=== PATIENT | male | born 1955 | race African-American/Black ===

== ENCOUNTER 2018-02-05 16:40 | Emergency (ER) | payer MEDICARE, MEDICAID ==
[~2018-02-05] VITALS: Ht 175.3 cm; Wt 75.0 kg
[~2018-02-05 16:40] MED LIST: ALBUTEROL; GABAPENTIN; MOTRIN; TRAMADOL
[2018-02-05 21:15] VITALS: BP 119/68
== END 2018-02-05 21:35 | disposition home or self-care (01) ==
LOC: ER 16:56
DX: Z43.3 Encounter for attention to colostomy (principal); C18.9 Malignant neoplasm of colon, unspecified; Z85.038 Personal history of other malignant neoplasm of large intestine; J45.909 Unspecified asthma, uncomplicated
CPT/HCPCS: 99284

== ENCOUNTER 2018-08-26 13:38 | Emergency (ER) | payer MEDICARE, MEDICAID ==
[~2018-08-26] VITALS: Ht 195.6 cm; Wt 70.0 kg
[~2018-08-26 13:38] MED LIST changes: -MOTRIN
[2018-08-26] MEDS ORDERED: MORPHINE SULFATE 4 MG/ML CPJ (NOT FOR IM USE) IV STA (15:18)
[2018-08-26] MEDS ORDERED: ONDANSETRON HCL 4MG/2ML INJ IV STA (15:18)
[2018-08-26 16:48] LABS: HEMATOCRIT. 23.4 % (42.0-52.0); HEMOGLOBIN. 7.5 g/dL (14.0-18.0); MEAN CORPUSCULAR HEMOGLOBIN 22.2 pg (28.0-32.0); MEAN CORPUSCULAR VOLUME 68.6 fL (80.0-94.0); MEAN PLATELET VOLUME 8.3 fl (7.4-10.4); PLATELET 480 x1000/uL (130-400); RED BLOOD CELL COUNT 3.41 mill/uL (4.7-6.1); RED CELL DISTRIBUTION WIDTH 16.9 % (11.6-14.6)
[2018-08-26 16:52] LABS: INR 1.2; PROTHROMBIN TIME 12.2 sec (9.1-11.1)
[2018-08-26 16:53] LABS: CHLORIDE 99 mEq/L (98-107)
[2018-08-26 17:40] LABS: PLATELET ESTIMATE INCREASED
[2018-08-26 19:10] VITALS: BP 122/72
== END 2018-08-26 19:24 | disposition home or self-care (01) ==
LOC: ER 13:38
DX: K94.09 Other complications of colostomy (principal); M54.5 Low back pain; R10.9 Unspecified abdominal pain; Z93.3 Colostomy status; Z85.038 Personal history of other malignant neoplasm of large intestine; Z98.890 Other specified postprocedural states
CPT/HCPCS: 36415; 72100; 80053; 83690; 85025; 85610; 96374; 96375; 99285; J2270; J2405

== ENCOUNTER 2018-09-03 13:52 | Inpatient (IN) | payer MEDICARE, MEDICAID ==
[~2018-09-03] VITALS: Ht 196.8 cm; Wt 70.8 kg
[2018-09-03 16:09] LABS: BASOPHILS % 0.4 % (0.0-2.0); EOSINOPHILS % 0.3 % (0.0-5.0); HEMATOCRIT. 26.5 % (42.0-52.0); HEMOGLOBIN. 8.4 g/dL (14.0-18.0); LYMPHOCYTES % 42.8 % (20.0-50.0); MEAN CORPUSCULAR HEMOGLOBIN 21.1 pg (28.0-32.0); MEAN CORPUSCULAR VOLUME 66.6 fL (80.0-94.0); MEAN PLATELET VOLUME 7.3 fl (7.4-10.4); MONOCYTES % 6.2 % (2.0-8.0); NEUTROPHILS % 50.3 % (40.0-76.0); PLATELET 820 x1000/uL (130-400); RED BLOOD CELL COUNT 3.97 mill/uL (4.7-6.1); RED CELL DISTRIBUTION WIDTH 17.3 % (11.6-14.6)
[2018-09-03 16:24] LABS: INR 1.3; PARTIAL THROMBOPLASTIN TIME 32.9 sec (23.4-31.0); PROTHROMBIN TIME 13.3 sec (9.1-11.1)
[2018-09-03 16:25] LABS: PLATELET ESTIMATE MARKEDLY INCREASED
[2018-09-03] MEDS ORDERED: ONDANSETRON HCL 4MG/2ML INJ IV STA (16:32)
[2018-09-03] MEDS ORDERED: SODIUM CHLORIDE 0.9% 1,000 ML IV ONE (16:32)
[2018-09-03] MEDS ORDERED: FENTANYL CITRATE/PF 50MCG/ML 2ML VIAL IV ONE (16:45)
[2018-09-03 17:06] LABS: CHLORIDE 99 mEq/L (98-107)
[2018-09-03] MEDS ORDERED: DOCUSATE SODIUM 100MG CAPSULE PO PRN (17:15)
[2018-09-03] MEDS ORDERED: NITROGLYCERIN 0.4MG TABLET SL SL PRN (17:15)
[2018-09-03] MEDS ORDERED: ONDANSETRON HCL 4MG/2ML INJ IV PRN (17:15)
[2018-09-03] MEDS ORDERED: IPRATROPIUM/ALBUTEROL 0.5-3(2.5)MG/3ML NEB INH PRN (17:15)
[2018-09-03] MEDS ORDERED: LORAZEPAM 0.5MG TABLET PO PRN (17:15)
[2018-09-03] MEDS ORDERED: TRAMADOL 50MG TABLET PO PRN (17:15)
[2018-09-03] MEDS ORDERED: ZOLPIDEM TARTRATE 5MG TABLET PO PRN (17:15)
[2018-09-03] MEDS ORDERED: MAGNESIUM/ALUMINUM HYDROXIDE/SIMETHICONE 30ML UDC PO PRN (17:15)
[2018-09-03] MEDS ORDERED: MORPHINE SULFATE 4 MG/ML CPJ (NOT FOR IM USE) IV PRN (17:15)
[2018-09-03] MEDS ORDERED: CLONIDINE 0.1MG TABLET PO PRN (17:15)
[2018-09-03] MEDS ORDERED: KETOROLAC 15MG/ML VIAL IV PRN (17:15)
[2018-09-03 17:59] LABS: TOTAL IRON BINDING CAPACITY 273 ug/dL (250-450)
[2018-09-03 21:29] VITALS: BP 109/68
[2018-09-03 22:08] LABS: *BARBITURATES SCREEN URINE NEGATIVE (NEGATIVE); *BENZODIAZEPINES SCREEN URINE NEGATIVE (NEGATIVE); *COCAINE SCREEN URINE NEGATIVE (NEGATIVE); METHADONE URINE SCREEN NEGATIVE (NEGATIVE); OPIATES URINE SCREEN NEGATIVE (NEGATIVE); PHENCYCLIDINE URINE SCREEN NEGATIVE (NEGATIVE)
[2018-09-03 22:09] LABS: *AMPHETAMINES SCREEN URINE NEGATIVE (NEGATIVE); CANNABINOID URINE SCREEN PRESUMTIVE POSITIVE (NEGATIVE)
[2018-09-03] MEDS ORDERED: INFLUENZA VIRUS VACCINE(AFLURIA) 0.5ML SYR IM ONE (22:45)
[2018-09-03] MEDS: HYDROCORTISONE 1% RECTAL CREAM 30GM PR SCH (23:09)
[2018-09-04 00:45] LABS: HEMATOCRIT 23.8 % (42.0-52.0); HEMOGLOBIN 7.8 g/dL (14.0-18.0)
[2018-09-04 08:00] VITALS: BP 103/67
[2018-09-04] MEDS ORDERED: INFLUENZA VIRUS VACCINE(AFLURIA) 0.5ML SYR IM ONE ×2 (09:00→12:00)
[2018-09-04] MEDS: HYDROCORTISONE 1% RECTAL CREAM 30GM PR SCH ×2 (09:00→21:39)
[2018-09-04] MEDS: FERROUS SULFATE 300MG/5ML UDC PO SCH ×3 (09:35→18:24)
[2018-09-04] MEDS: PANTOPRAZOLE SODIUM 40 MG/VIAL IV SCH (09:35)
[2018-09-04 12:00] VITALS: BP 106/63
[2018-09-04] MEDS ORDERED: IOHEXOL-300 100 ML BOTTLE ONE (13:47)
[2018-09-04 16:00] VITALS: BP 103/65
[2018-09-04] MEDS: ACETAMINOPHEN 325MG TABLET PO PRN (18:57)
[2018-09-04 20:00] VITALS: BP 99/57
[2018-09-05] VITALS (7 sets, daily range): BP systolic 85–119; BP diastolic 57–86
[2018-09-05] MEDS: ACETAMINOPHEN 325MG TABLET PO PRN (02:21)
[2018-09-05 07:47] LABS: HEMATOCRIT. 23.9 % (42.0-52.0); HEMOGLOBIN. 7.9 g/dL (14.0-18.0); MEAN CORPUSCULAR HEMOGLOBIN 21.9 pg (28.0-32.0); MEAN CORPUSCULAR VOLUME 66.6 fL (80.0-94.0); MEAN PLATELET VOLUME 7.5 fl (7.4-10.4); PLATELET 827 x1000/uL (130-400); RED BLOOD CELL COUNT 3.59 mill/uL (4.7-6.1); RED CELL DISTRIBUTION WIDTH 17.1 % (11.6-14.6)
[2018-09-05] MEDS: PANTOPRAZOLE SODIUM 40 MG/VIAL IV SCH (08:41)
[2018-09-05] MEDS: FERROUS SULFATE 300MG/5ML UDC PO SCH ×2 (08:41→12:28)
[2018-09-05] MEDS: HYDROCORTISONE 1% RECTAL CREAM 30GM PR SCH (08:46)
[2018-09-05 10:40] LABS: CHLORIDE 103 mEq/L (98-107)
[2018-09-05 17:58] LABS: PLATELET ESTIMATE MARKEDLY INCREASED
[2018-09-05 18:57] LABS: VITAMIN B12 SERUM 1574 pg/mL (211-911)
[2018-09-05 19:02] LABS: FOLIC ACID (FOLATE) SERUM > 20.00 ng/mL (>5.38)
[2018-09-11 04:12] LABS: OVA & PARASITE EXAM Final report (.)
== END 2018-09-05 16:18 | disposition home or self-care (01) | DRG 375 ==
LOC: ER 14:02 → EDBEDREQ 16:52 → EDBEDREQTM 16:52 → ENRESERV 19:57 → 6EST 21:28 → CANBEDREQ 09-05 01:26
PROVIDERS: ADMIT Internal Medicine; ATTEND Internal Medicine
DX: C18.9 Malignant neoplasm of colon, unspecified (principal); D62 Acute posthemorrhagic anemia; E87.1 Hypo-osmolality and hyponatremia; E44.0 Moderate protein-calorie malnutrition; C78.5 Secondary malignant neoplasm of large intestine and rectum; Z68.1 Body mass index [BMI] 19.9 or less, adult; K64.9 Unspecified hemorrhoids; F12.10 Cannabis abuse, uncomplicated; G89.29 Other chronic pain; M17.11 Unilateral primary osteoarthritis, right knee; M54.9 Dorsalgia, unspecified; D50.9 Iron deficiency anemia, unspecified; J44.9 Chronic obstructive pulmonary disease, unspecified; K43.9 Ventral hernia without obstruction or gangrene; Z93.3 Colostomy status
CPT/HCPCS: 36415; 71045; 74177; 80048; 80305; 82607; 82705; 82746; 83036; 83540; 83550; 85014; 85018; 87015; 87045; 87177; 87209; 87427; 87449; 87493; 89055; 90686; 93970; 96374; 96375; 99285; C9113; J2270; J2405; J3010; J7030; Q9967

== ENCOUNTER 2019-02-05 00:16 | Inpatient (IN) | payer MEDICARE, MEDICAID ==
[~2019-02-05] VITALS: Ht 195.6 cm; Wt 57.6 kg
[2019-02-05] VITALS (9 sets, daily range): BP systolic 97–110; BP diastolic 64–72
[2019-02-05] MEDS ORDERED: SODIUM CHLORIDE 0.9% 1,000 ML IV ONE (01:17)
[2019-02-05] MEDS ORDERED: ONDANSETRON HCL 4MG/2ML INJ IV STA (01:17)
[2019-02-05] MEDS ORDERED: MORPHINE SULFATE 4 MG/ML CPJ (NOT FOR IM USE) IV STA (01:17)
[2019-02-05] MEDS ORDERED: LEVOFLOXACIN 750MG PREMIX 150 ML IV ONE (01:30)
[2019-02-05] MEDS ORDERED: CLINDAMYCIN 600 MG in DEXTROSE 5% WATER 50 ML IV ONE (01:30)
[2019-02-05] MEDS ORDERED: METRONIDAZOLE 500 MG PREMIX 100 ML IV ONE (01:30)
[2019-02-05 01:56] LABS: MEAN CORPUSCULAR HEMOGLOBIN 25.6 pg (28.0-32.0); MEAN CORPUSCULAR VOLUME 79.5 fL (80.0-94.0); MEAN PLATELET VOLUME 8.2 fl (7.4-10.4); PLATELET 391 x1000/uL (130-400); RED BLOOD CELL COUNT 2.55 mill/uL (4.7-6.1)
[2019-02-05 01:58] LABS: HEMATOCRIT. 20.3 % (42.0-52.0); HEMOGLOBIN. 6.5 g/dL (14.0-18.0)
[2019-02-05 02:04] LABS: CHLORIDE 104 mEq/L (98-107); INR 1.3; PROTHROMBIN TIME 13.3 sec (9.6-11.0)
[2019-02-05 02:34] LABS: NUCLEATED RED BLOOD CELLS 1 /100 WBC
[2019-02-05 02:35] LABS: PLATELET ESTIMATE NORMAL
[2019-02-05] MEDS ORDERED: CLINDAMYCIN 600MG PREMIX 50 ML IV SCH (03:00)
[2019-02-05] MEDS ORDERED: IOHEXOL-300 100 ML BOTTLE ONE (03:13)
[2019-02-05] MEDS ORDERED: CLONIDINE 0.1MG TABLET PO PRN (08:45)
[2019-02-05] MEDS ORDERED: MAGNESIUM/ALUMINUM HYDROXIDE/SIMETHICONE 30ML UDC PO PRN (08:45)
[2019-02-05] MEDS ORDERED: IPRATROPIUM/ALBUTEROL 0.5-3(2.5)MG/3ML NEB INH PRN (08:45)
[2019-02-05] MEDS ORDERED: DIPHENHYDRAMINE 50MG/ML VIAL IV PRN (08:45)
[2019-02-05] MEDS ORDERED: ONDANSETRON HCL 4MG/2ML INJ IV PRN (08:45)
[2019-02-05] MEDS ORDERED: DOCUSATE SODIUM 100MG CAPSULE PO PRN (08:45)
[2019-02-05] MEDS ORDERED: ACETAMINOPHEN 325MG TABLET PO PRN (08:45)
[2019-02-05] MEDS ORDERED: GUAIFENESIN 200MG/10ML SUGAR FREE UDC PO PRN (08:45)
[2019-02-05 09:07] LABS: PHOSPHORUS 3.1 mg/dL (2.5-4.9)
[2019-02-05] MEDS: CEFEPIME 1,000 MG in DEXTROSE 5% WATER 50 ML IV SCH (13:30)
[2019-02-05] MEDS: METRONIDAZOLE 500 MG PREMIX 100 ML IV SCH ×2 (14:00→22:58)
[2019-02-05] MEDS ORDERED: VANCOMYCIN 1,750 MG in DEXT 5% WATER 250 ML IV NR ×2 (15:00→21:00)
[2019-02-05] MEDS ORDERED: VANCOMYCIN 1250MG in DEXTROSE 5% WATER 250ML IV SCH (17:00)
[2019-02-05 17:55] LABS: CREATINE KINASE MB FRACTION 3.4 ng/mL (0.5-3.6)
[2019-02-05 19:38] LABS: MEAN CORPUSCULAR HEMOGLOBIN 25.1 pg (28.0-32.0); MEAN CORPUSCULAR VOLUME 81.7 fL (80.0-94.0); MEAN PLATELET VOLUME 8.6 fl (7.4-10.4); PLATELET 382 x1000/uL (130-400); RED BLOOD CELL COUNT 2.33 mill/uL (4.7-6.1); RED CELL DISTRIBUTION WIDTH 19.4 % (11.6-14.6)
[2019-02-05 19:41] LABS: HEMATOCRIT. 19.1 % (42.0-52.0); HEMOGLOBIN. 5.9 g/dL (14.0-18.0)
[2019-02-05] MEDS: MORPHINE SULFATE 4 MG/ML CPJ (NOT FOR IM USE) IV PRN (20:10)
[2019-02-05 20:38] LABS: PLATELET ESTIMATE NORMAL
[2019-02-05 22:22] LABS: TOTAL IRON BINDING CAPACITY 139 ug/dL (250-450)
[2019-02-06] VITALS (12 sets, daily range): BP systolic 106–124; BP diastolic 69–82
[2019-02-06] MEDS: MORPHINE SULFATE 4 MG/ML CPJ (NOT FOR IM USE) IV PRN ×5 (00:49→22:35)
[2019-02-06] MEDS: CEFEPIME 1,000 MG in DEXTROSE 5% WATER 50 ML IV SCH ×2 (01:27→12:49)
[2019-02-06 02:52] LABS: CREATINE KINASE MB FRACTION 3.5 ng/mL (0.5-3.6)
[2019-02-06] MEDS ORDERED: VANCOMYCIN 1250MG in DEXTROSE 5% WATER 250ML IV SCH (06:00)
[2019-02-06] MEDS: METRONIDAZOLE 500 MG PREMIX 100 ML IV SCH ×3 (07:09→21:29)
[2019-02-06 09:10] LABS: HEMATOCRIT. 31.1 % (42.0-52.0); HEMOGLOBIN. 10.3 g/dL (14.0-18.0); MEAN CORPUSCULAR HEMOGLOBIN 27.2 pg (28.0-32.0); MEAN CORPUSCULAR VOLUME 82.3 fL (80.0-94.0); MEAN PLATELET VOLUME 8.3 fl (7.4-10.4); PLATELET 376 x1000/uL (130-400); RED BLOOD CELL COUNT 3.78 mill/uL (4.7-6.1); RED CELL DISTRIBUTION WIDTH 16.9 % (11.6-14.6)
[2019-02-06 09:12] LABS: CHLORIDE 106 mEq/L (98-107)
[2019-02-06 09:21] LABS: LDL CHOLESTEROL 97 mg/dL (5-100)
[2019-02-06 09:22] LABS: HDL CHOLESTEROL 55 mg/dL (40-59)
[2019-02-06] MEDS: VANCOMYCIN 1250MG in DEXTROSE 5% WATER 250ML IV SCH ×2 (09:23→20:38)
[2019-02-06] MEDS ORDERED: HYDROCODONE/ACETAMINOPHEN 5/325MG TABLET PO PRN (11:30)
[2019-02-06] MEDS: OMEPRAZOLE 20MG CAPSULE EXTENDED RELEASE PO SCH (12:48)
[2019-02-06 17:23] LABS: PLATELET ESTIMATE NORMAL
[2019-02-07] VITALS: BP 124/83
[2019-02-07] MEDS: CEFEPIME 1,000 MG in DEXTROSE 5% WATER 50 ML IV SCH ×2 (01:19→13:14)
[2019-02-07] MEDS: MORPHINE SULFATE 4 MG/ML CPJ (NOT FOR IM USE) IV PRN ×3 (02:43→19:11)
[2019-02-07 04:00] VITALS: BP 120/80
[2019-02-07] MEDS: METRONIDAZOLE 500 MG PREMIX 100 ML IV SCH ×3 (06:31→23:12)
[2019-02-07 06:39] LABS: CHLORIDE 105 mEq/L (98-107)
[2019-02-07] MEDS: OMEPRAZOLE 20MG CAPSULE EXTENDED RELEASE PO SCH (06:45)
[2019-02-07] MEDS: VANCOMYCIN 1250MG in DEXTROSE 5% WATER 250ML IV SCH (09:55)
[2019-02-07 12:00] VITALS: BP 94/64
[2019-02-07 16:00] VITALS: BP 102/77
[2019-02-07 16:52] LABS: HEMATOCRIT 29.1 % (42.0-52.0); HEMOGLOBIN 9.6 g/dL (14.0-18.0); MEAN CORPUSCULAR HEMOGLOBIN 27.8 pg (28.0-32.0); MEAN CORPUSCULAR VOLUME 83.9 fL (80.0-94.0); PLATELET 369 x1000/uL (130-400); RED BLOOD CELL COUNT 3.46 mill/uL (4.7-6.1); RED CELL DISTRIBUTION WIDTH 17.8 % (11.6-14.6)
[2019-02-07 20:00] VITALS: BP 106/73
[2019-02-07] MEDS: VANCOMYCIN 750 MG PREMIX 150 ML IV SCH (20:57)
[2019-02-08] VITALS (7 sets, daily range): BP systolic 95–118; BP diastolic 64–86
[2019-02-08] MEDS: CEFEPIME 1,000 MG in DEXTROSE 5% WATER 50 ML IV SCH ×2 (01:19→13:30)
[2019-02-08] MEDS: MORPHINE SULFATE 4 MG/ML CPJ (NOT FOR IM USE) IV PRN ×5 (04:44→23:20)
[2019-02-08 06:12] LABS: HEMATOCRIT. 29.3 % (42.0-52.0); HEMOGLOBIN. 9.7 g/dL (14.0-18.0); MEAN CORPUSCULAR HEMOGLOBIN 27.3 pg (28.0-32.0); MEAN CORPUSCULAR VOLUME 82.6 fL (80.0-94.0); MEAN PLATELET VOLUME 8.6 fl (7.4-10.4); PLATELET 388 x1000/uL (130-400); RED BLOOD CELL COUNT 3.54 mill/uL (4.7-6.1); RED CELL DISTRIBUTION WIDTH 17.8 % (11.6-14.6)
[2019-02-08] MEDS: METRONIDAZOLE 500 MG PREMIX 100 ML IV SCH ×3 (06:13→22:46)
[2019-02-08] MEDS: OMEPRAZOLE 20MG CAPSULE EXTENDED RELEASE PO SCH (06:21)
[2019-02-08 06:32] LABS: CHLORIDE 106 mEq/L (98-107)
[2019-02-08] MEDS: VANCOMYCIN 750 MG PREMIX 150 ML IV SCH ×2 (09:04→21:32)
[2019-02-08 10:34] LABS: NUCLEATED RED BLOOD CELLS 1 /100 WBC; PLATELET ESTIMATE NORMAL
[2019-02-09] MEDS: CEFEPIME 1,000 MG in DEXTROSE 5% WATER 50 ML IV SCH ×2 (01:06→14:02)
[2019-02-09 04:00] VITALS: BP 113/71
[2019-02-09] MEDS: MORPHINE SULFATE 4 MG/ML CPJ (NOT FOR IM USE) IV PRN ×2 (05:16→14:03)
[2019-02-09] MEDS: OMEPRAZOLE 20MG CAPSULE EXTENDED RELEASE PO SCH (06:23)
[2019-02-09] MEDS: METRONIDAZOLE 500 MG PREMIX 100 ML IV SCH ×3 (06:24→22:25)
[2019-02-09 06:57] LABS: HEMATOCRIT. 29.4 % (42.0-52.0); HEMOGLOBIN. 9.5 g/dL (14.0-18.0); MEAN CORPUSCULAR HEMOGLOBIN 26.6 pg (28.0-32.0); MEAN CORPUSCULAR VOLUME 82.6 fL (80.0-94.0); MEAN PLATELET VOLUME 8.5 fl (7.4-10.4); PLATELET 348 x1000/uL (130-400); RED BLOOD CELL COUNT 3.56 mill/uL (4.7-6.1); RED CELL DISTRIBUTION WIDTH 18.5 % (11.6-14.6)
[2019-02-09 07:23] LABS: CHLORIDE 106 mEq/L (98-107)
[2019-02-09 08:00] VITALS: BP 99/67
[2019-02-09] MEDS: VANCOMYCIN 750 MG PREMIX 150 ML IV SCH (08:43)
[2019-02-09 10:41] LABS: PLATELET ESTIMATE NORMAL
[2019-02-09 12:00] VITALS: BP 104/64
[2019-02-09 16:00] VITALS: BP 99/70
[2019-02-09 20:00] VITALS: BP 93/57
[2019-02-10] VITALS: BP 98/67
[2019-02-10] MEDS: CEFEPIME 1,000 MG in DEXTROSE 5% WATER 50 ML IV SCH ×2 (00:52→12:03)
[2019-02-10 04:00] VITALS: BP 92/61
[2019-02-10] MEDS ORDERED: VANCOMYCIN 1 G PREMIX 200 ML IV SCH (04:00)
[2019-02-10] MEDS: OMEPRAZOLE 20MG CAPSULE EXTENDED RELEASE PO SCH (06:37)
[2019-02-10] MEDS: METRONIDAZOLE 500 MG PREMIX 100 ML IV SCH ×2 (06:49→12:44)
[2019-02-10 08:00] VITALS: BP 104/74
[2019-02-10 12:00] VITALS: BP 92/64
[2019-02-10 12:19] VITALS: BP 104/74
== END 2019-02-10 14:40 | disposition home or self-care (01) | DRG 871 ==
LOC: ER 00:16 → 5WST 04:51 → EDBEDREQTM 04:58 → EDBEDREQ 04:58 → ENRESERV 07:51
PROVIDERS: ADMIT Internal Medicine; ATTEND Internal Medicine
PROC: 30233N1 Transfusion of Nonautologous Red Blood Cells into Peripheral Vein, Percutaneous Approach (ICD-10-PCS; principal; 2019-02-05)
DX: A41.9 Sepsis, unspecified organism (principal); E43 Unspecified severe protein-calorie malnutrition; C18.9 Malignant neoplasm of colon, unspecified; C78.7 Secondary malignant neoplasm of liver and intrahepatic bile duct; C78.00 Secondary malignant neoplasm of unspecified lung; C79.89 Secondary malignant neoplasm of other specified sites; E87.2 Acidosis; E87.1 Hypo-osmolality and hyponatremia; C78.6 Secondary malignant neoplasm of retroperitoneum and peritoneum; Z68.1 Body mass index [BMI] 19.9 or less, adult; B99.8 Other infectious disease; D50.9 Iron deficiency anemia, unspecified; J45.909 Unspecified asthma, uncomplicated; K64.9 Unspecified hemorrhoids; K42.9 Umbilical hernia without obstruction or gangrene; N32.89 Other specified disorders of bladder; Z93.3 Colostomy status; Z90.49 Acquired absence of other specified parts of digestive tract; Z92.21 Personal history of antineoplastic chemotherapy; Z86.73 Personal history of transient ischemic attack (TIA), and cerebral infarction without residual deficits; Z79.899 Other long term (current) drug therapy; Z89.429 Acquired absence of other toe(s), unspecified side
CPT/HCPCS: 36415; 71045; 74177; 80048; 80061; 80202; 82270; 82550; 82553; 82728; 83036; 83540; 83550; 83605; 83735; 84100; 84145; 84439; 84443; 85027; 86850; 86900; 86920; 93970; 96365; 96375; 97110; 97162; 97166; 97530; 99291; J0692; J1200; J1956; J2270; J2405; J3370; J3490; J7030; J7040; J7050; J7060; P9016; Q9967